=== PATIENT | female | born 1955 | race Caucasian/White ===

== ENCOUNTER → 2017-03-20 13:55 | Outpatient (CLI) | payer BC ==
[2014-04-24 16:55] VITALS: BMI 53.2
[~2017-03-20 13:55] MED LIST: ALEVE220 MG PO; EFFEXOR XR150 MG PO; PLAVIX75 MG PO; SYNTHROID25 MCG PO
[2017-03-20 14:27] LABS: BASOPHILS 0.2 % (0-2); EOSINOPHILS 1.2 % (0-7); HEMATOCRIT 43.3 % (36.0-48.0); IMMATURE GRANULOCYTES 0.3 % (0-5); LYMPHOCYTES 28.7 % (15-50); MCH 31.5 pg (26.0-34.0); MCHC 32.3 g/dL (31.0-37.0); MCV 97.3 fL (80.0-100.0); MEAN PLATELET VOLUME 10.9 fL (7.4-10.4); MONOCYTES 6.3 % (2-11); NEUTROPHILS 63.3 % (40-80); PLATELET COUNT 226 10x3/uL (130-400); RBC 4.45 10x6/uL (4.00-5.40); RDW 14.2 % (11.5-14.5); WBC 11.5 10x3/uL (4.8-10.8)
[2017-03-20 14:58] LABS: ALBUMIN 3.5 g/dL (3.4-5.0); ALKALINE PHOSPHATASE 80 U/L (46-116); ALT (SGPT) 35 U/L (10-68); BILIRUBIN - TOTAL 0.17 mg/dL (0.2-1.3); CALC OSMOLALITY 283 mosm/kg (275-300); CALCIUM 10.6 mg/dL (8.5-10.1); CARBON DIOXIDE 28.6 mmol/L (21.0-32.0); CHLORIDE - SERUM 107 mmol/L (98-107); CREATININE - SERUM 0.7 mg/dL (0.6-1.3); FERRITIN 61 ng/mL (3-244); GLUCOSE 84 mg/dL (74-106); POTASSIUM - SERUM 4.1 mmol/L (3.5-5.1); PROTEIN - SERUM 7.4 g/dL (6.4-8.2); SODIUM 142 mmol/L (136-145); THYROID STIMULATING HORMONE 3.15 uIU/mL (0.36-3.74); UREA NITROGEN 18 mg/dL (7-18); eGFR NON AFRICAN AMERICAN 90 mL/min (90-120)
[2017-03-21 07:27] LABS: VITAMIN D 25 HYDROXY 38.3 ng/mL (30.0-100.0)
[2017-03-21 08:19] LABS: FOLATE (FOLIC ACID) - SERUM >20.0 ng/mL (>3.0)
== END | disposition home or self-care (01) ==
LOC: D.RT 03-19 16:45
PROVIDERS: Surgery
DX: E66.01 Morbid (severe) obesity due to excess calories (principal)

== ENCOUNTER → 2017-09-13 15:42 | Outpatient (CLI) | payer BC ==
[2014-04-24 16:55] VITALS: BMI 53.2
[2017-09-13 16:23] LABS: ALBUMIN 3.4 g/dL (3.4-5.0); ALKALINE PHOSPHATASE 96 U/L (46-116); ALT (SGPT) 26 U/L (10-68); BILIRUBIN - TOTAL 0.24 mg/dL (0.2-1.3); CALC OSMOLALITY 284 mosm/kg (275-300); CALCIUM 9.8 mg/dL (8.5-10.1); CARBON DIOXIDE 30.1 mmol/L (21.0-32.0); CHLORIDE - SERUM 107 mmol/L (98-107); CREATININE - SERUM 0.4 mg/dL (0.6-1.3); GLUCOSE 106 mg/dL (74-106); POTASSIUM - SERUM 3.5 mmol/L (3.5-5.1); PROTEIN - SERUM 6.9 g/dL (6.4-8.2); SODIUM 144 mmol/L (136-145); UREA NITROGEN 6 mg/dL (7-18); eGFR NON AFRICAN AMERICAN > 90 mL/min (90-120)
[2017-09-13 16:33] LABS: % SATURATION 18 % (15-55); IRON 62 ug/dl (35-150); TOTAL IRON BIND CAPACITY 341 ug/dl (260-445); UNSAT IRON BIND CAPACITY 279 ug/dl (150-375)
[2017-09-15 09:13] LABS: FOLATE (FOLIC ACID) - SERUM >20.0 ng/mL (>3.0)
== END | disposition home or self-care (01) ==
LOC: D.LAB 15:42
PROVIDERS: Surgery
DX: E55.9 Vitamin D deficiency, unspecified (principal); E51.9 Thiamine deficiency, unspecified; D51.9 Vitamin B12 deficiency anemia, unspecified; R53.83 Other fatigue; E87.8 Other disorders of electrolyte and fluid balance, not elsewhere classified; D64.9 Anemia, unspecified

== ENCOUNTER → 2017-11-30 13:00 | Outpatient (CLI) | payer BC ==
[2014-04-24 16:55] VITALS: BMI 53.2
== END | disposition home or self-care (01) ==
LOC: D.MAMMO 13:00
DX: Z12.31 Encounter for screening mammogram for malignant neoplasm of breast (principal)

== ENCOUNTER 2019-09-24 09:41 | Inpatient (IN) | payer BC, MEDICARE ==
[~2019-09-24] VITALS: Ht 157.5 cm; Wt 112.5 kg
[2019-10-22 11:09] LABS: BASOPHILS 0.1 % (0-2); EOSINOPHILS 1.8 % (0-7); HEMATOCRIT 42.1 % (36.0-48.0); HEMOGLOBIN 13.2 g/dL (12-16); IMMATURE GRANULOCYTES 0.1 % (0-5); LYMPHOCYTES 34.2 % (15-50); MCH 30.7 pg (26.0-34.0); MCHC 31.4 g/dL (31.0-37.0); MCV 97.9 fL (80.0-100.0); MEAN PLATELET VOLUME 10.8 fL (7.4-10.4); MONOCYTES 6.6 % (2-11); NEUTROPHILS 57.2 % (40-80); PLATELET COUNT 253 10x3/uL (130-400); RDW 13.5 % (11.5-14.5); WBC 7.1 10x3/uL (4.8-10.8)
[2019-10-22 11:12] LABS: APTT 27.3 SECONDS (22.8-39.4); INR 0.91 (0.85-1.17); PROTIME 12.3 SECONDS (11.6-15.0)
[2019-10-22 11:15] LABS: CALC OSMOLALITY 269 mosm/kg (275-300); CARBON DIOXIDE 27.7 mmol/L (21.0-32.0); CHLORIDE - SERUM 104 mmol/L (98-107); CREATININE - SERUM 0.6 mg/dL (0.6-1.3); GLUCOSE 83 mg/dL (74-106); SODIUM 136 mmol/L (136-145); UREA NITROGEN 11 mg/dL (7-18); eGFR NON AFRICAN AMERICAN > 90 mL/min (90-120)
[2019-10-22 11:21] LABS: BILIRUBIN NEGATIVE (NEGATIVE); KETONE NEGATIVE (NEGATIVE); NITRITE NEGATIVE (NEGATIVE); UROBILINOGEN NORMAL mg/dL (< 2)
[2019-10-28] VITALS (11 sets, daily range): BP systolic 94–143; BP diastolic 51–77; BMI 376.1; BMI 45.5
--- NOTE | 2019-10-28 08:06 | NUR ---
THROUGH TRAFFIC KEPT TO A MINIMUM. HIBACLENS AND ALCOHOL USED TO CLEAN BOTH SIDES BEFORE PREPPING. STERILE GOWNED AND GLOVED TO PREP BILATERAL KNEES.
--- NOTE | 2019-10-28 11:20 | NUR ---
ANESTHESIA AT BEDSIDE AT THIS TIME. EPIDURAL PAUSED FOR SBP SUSTAINED IN 80'S. WILL RESUME AT A LATER TIME PRESSURE ALLOWS.
--- NOTE | 2019-10-28 12:05 | NUR ---
RECEIVED TO ROOM 1213 VIA BED FROM PACU. A/O X3. DRESSINGS TO BILATERAL KNEES DRY AND INTACT. IN ROOM. NO C/O PAIN AT THIS TIME. BP IS RUNNING LOW, DR. FROST AWARE OF SAME. WILL MONITOR.
--- NOTE | 2019-10-28 12:46 | MORECARE ---
CASE MANAGEMENT DISCHARGE SUMMARY PATIENT: OSVALDO CASH UNIT: [id number] ADM DATE: 10/28/19 AGE: 64 : 56 SEX: F ROOM/BED: D.1213 AUTHOR: LIBERTAD MONAE PHYSICIAN: REFERRING PHYSICIAN: SAMIRA DAVILA DO DATE OF SERVICE: 10/28/19 Discharge Plan Patient Name: OSVALDO CASH [facility] : 1955 Planned Disposition: Anticipated Discharge Date: Discharge Date: Expected LOS: Initial Reviewer: [email or web address] Initial Review Date: 10/28/2019 Generated: 10/28/19 1:45 pm Patient Name: OSVALDO CASH Page 11158 at 1246 All edits/amendments must be made on the electronic document DICTATION DATE: 10/28/19 1245 PORTAL ADMINISTRATOR: MAJO 10/28/19 1245 RPT#: [id number] DC DATE: STATUS: ADM IN [facility] [address] [place] [address] END OF REPORT
--- NOTE | 2019-10-28 13:52 | NUR ---
BP IS UP SLIGHTLY. SITTING UP IN BED EATING LUNCH. DR. TIPTON HERE AT THIS TIME. WILL CONTINUE TO MONITOR.
--- NOTE | 2019-10-28 14:30 | NUR ---
RESTING QUIETLY IN BED. DENIES NEEDS. AT BEDSIDE.
--- NOTE | 2019-10-28 14:34 | MORECARE ---
CASE MANAGEMENT DISCHARGE SUMMARY PATIENT: OSVALDO CASH UNIT: [id number] ADM DATE: 10/28/19 AGE: 64 : 56 SEX: F ROOM/BED: D.1213 AUTHOR: LIBERTAD MONAE PHYSICIAN: REFERRING PHYSICIAN: SAMIRA DAVILA DO DATE OF SERVICE: 10/28/19 Discharge Plan Patient Name: OSAVLDO CASH [facility] [facility] 1955 Planned Disposition: Anticipated Discharge Date: Discharge Date: Expected LOS: Initial Reviewer: [email or web address] Initial Review Date: 10/28/2019 Generated: 10/28/19 3:33 pm Last DP export: 10/28/19 11:46 a Patient Name: OSVALDO CASH Page 68082 at 1434 All edits/amendments must be made on the electronic document DICTATION DATE: 10/28/19 1434 SPINNER OPEN END: MAJO 10/28/19 1434 RPT#: [id number] DC DATE: STATUS: ADM IN [facility] [address] [place] [address] END OF REPORT
--- NOTE | 2019-10-28 15:18 | NUR ---
ATE ABOUT 25% OF LUNCH. DENIES NEEDS. VSS. AT BEDSIDE.
--- NOTE | 2019-10-28 16:49 | MORECARE ---
CASE MANAGEMENT DISCHARGE SUMMARY PATIENT: RADHA CASH UNIT: [id number] ADM DATE: 10/28/19 AGE: 64 : 57 SEX: F ROOM/BED: D.1213 AUTHOR: DOV,DOC PHYSICIAN: REFERRING PHYSICIAN: SAMIRA DAVILA DO DATE OF SERVICE: 10/28/19 Discharge Plan Patient Name: RADHA CASH Facility: [facility]:[place] : 1955 Planned Disposition: Home with Home Health Anticipated Discharge Date: Discharge Date: Expected LOS: Initial Reviewer: [email or web address] Initial Review Date: 10/28/2019 Generated: 10/28/19 5:48 pm Comments DCP- Discharge Planning Updated by [id number]: Betina Garsia on 10/28/19 3:[address] CM contacted Lesa, with [employer] ([phone]) and faxed information to [phone]. CM met with patient to discuss initial discharge planning. Patient is in agreement to proceed. Patient reports that she lives at home independently with her , Isak ([phone]). Patient is alert/oriented. PCP: Dr. Pak. Pharmacy: [facility], . HHS: [employer], [phone]), [phone]. DME: To be delivered : CPM, Walker, BSC. Patient currently has a raised toilet seat aqnd pedal machine at home. Patient gives permission to speak in front of spouse, Isak ([phone]). 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 CM discussed the availability of HH, Rehab, SNF, OP Therapy, DME services. Patient request [facility] for therapy and feels safe returning to previous environment. Patient denies hospitalization within the past 30 days. Patient denies the use of community resources VETERANS SERVICE OFFICER. Transportation at time of discharge: Isak (spouse). CM will follow and assist PRN with DC plans. Coverage Notice Reviewer: [id number] - Betina Garsia Notice Issued Date-Time: 10/28/2019 16:37 Notice Type: Patient Choice Letter Notice Delivered To: Patient Relationship to Patient: Self Perinatal Instructor Name: Radha cash Delivery Method: HAND - Hand Delivered Magdalena Days: Prior Verbal Notification: Recipient Understood Notice: Yes Recipient Signature: Med Rec Note Co-signed by Attending: Coverage Notice Comment: Robinson AYERS Last DP export: 10/28/19 1:34 p Patient Name: RADHA CASH Page 26321 at 1649 All edits/amendments must be made on the electronic document DICTATION DATE: 10/28/191647 ARMATURE REPAIRER: MAJO 10/28/191647 RPT#: [id number] DC DATE: STATUS: ADM IN [facility] [address] [place] [address] END OF REPORT
--- NOTE | 2019-10-28 16:57 | MORECARE ---
CASE MANAGEMENT DISCHARGE SUMMARY PATIENT: RADHA CASH UNIT: [id number] ADM DATE: 10/28/19 AGE: 64 : 57 SEX: F ROOM/BED: D.1213 AUTHOR: DOV,DOC PHYSICIAN: REFERRING PHYSICIAN: SAMIRA DAVILA DO DATE OF SERVICE: 10/28/19 Discharge Plan Patient Name: RADHA CASH Facility: [facility]:[place] : 1955 Planned Disposition: Home with Home Health Anticipated Discharge Date: Discharge Date: Expected LOS: Initial Reviewer: [email or web address] Initial Review Date: 10/28/2019 Generated: 10/28/19 5:57 pm Comments DCP- Discharge Planning Updated by [email or web address]: Betina Garsia on 10/28/19 3:[address] CM contacted Lesa, with [employer] ([phone]) and faxed information to [phone]. CM met with patient to discuss initial discharge planning. Patient is in agreement to proceed. Patient reports that she lives at home independently with her , Isak ([phone]). Patient is alert/oriented. PCP: Dr. Pak. Pharmacy: [facility], . HHS: [employer], [phone]), [phone]. DME: To be delivered : CPM, Walker, BSC. Patient currently has a raised toilet seat aqnd pedal machine at home. Patient gives permission to speak in front of spouse, Isak ([phone]). 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 CM discussed the availability of HH, Rehab, SNF, OP Therapy, DME services. Patient request [facility] for therapy and feels safe returning to previous environment. Patient denies hospitalization within the past 30 days. 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 Transportation at time of discharge: Isak (spouse). CM will follow and assist PRN with DC plans. External Providers External Provider: [facility] Next Contact Date: Service Request Date: Service Type: Resolution: Reviewer: Comments: Coverage Notice Reviewer: [id number] - Betina Garsia Notice Issued Date-Time: 10/28/2019 16:37 Notice Type: Patient Choice Letter Notice Delivered To: Patient Relationship to Patient: Self Tree Trimmer Name: Radha cash Delivery Method: HAND - Hand Delivered Magdalena Days: Prior Verbal Notification: Recipient Understood Notice: Yes Recipient Signature: Med Rec Note Co-signed by Attending: Coverage Notice Comment: Abdirizak AYERS Last DP export: 10/28/19 1:34 p Patient Name: RADHA CASH Page 45037 at 1657 All edits/amendments must be made on the electronic document DICTATION DATE: 10/28/191656 PHARMACY SPECIALIST: MAJO 10/28/191656 RPT#: [id number] DC DATE: STATUS: ADM IN [facility] [address] [place] [address] END OF REPORT
--- NOTE | 2019-10-28 17:04 | MORECARE ---
CASE MANAGEMENT DISCHARGE SUMMARY PATIENT: RADHA CASH UNIT: [id number] ADM DATE: 10/28/19 AGE: 64 : 57 SEX: F ROOM/BED: D.1213 AUTHOR: DOV,DOC PHYSICIAN: REFERRING PHYSICIAN: SAMIRA DAVILA DO DATE OF SERVICE: 10/28/19 Discharge Plan Patient Name: RADHA CASH Facility: [facility]:[place] : 1955 Planned Disposition: Home with Home Health Anticipated Discharge Date: Discharge Date: Expected LOS: Initial Reviewer: [email or web address] Initial Review Date: 10/28/2019 Generated: 10/28/19 6:04 pm Comments DCP- Discharge Planning Updated by [id number]: Betina Garsia on 10/28/19 3:[address] CM contacted Lesa, with [employer] ([phone]) and faxed information to [phone]. CM met with patient to discuss initial discharge planning. Patient is in agreement to proceed. Patient reports that she lives at home independently with her , Isak ([phone]). Patient is alert/oriented. PCP: Dr. Pak. Pharmacy: [facility], . HHS: [employer] [facility], [phone]), [phone]. DME: To be delivered : CPM, Walker, BSC. Patient currently has a raised toilet seat aqnd pedal machine at home. Patient gives permission to speak in front of spouse, Isak ([phone]). 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 CM discussed the availability of HH, Rehab, SNF, OP Therapy, DME services. Patient request [facility] for therapy and feels safe returning to previous environment. Patient denies hospitalization within the past 30 days. Patient denies the use of community resources TRIPLE DRUM OPERATOR. Transportation at time of discharge: Isak (spouse). CM will follow and assist PRN with DC plans. Coverage Notice Reviewer: [id number] - Betina Garsia Notice Issued Date-Time: 10/28/2019 16:37 Notice Type: Patient Choice Letter Notice Delivered To: Patient Relationship to Patient: Self Last Trimmer Name: Radha cash Delivery Method: HAND - Hand Delivered Magdalena Days: Prior Verbal Notification: Recipient Understood Notice: Yes Recipient Signature: Med Rec Note Co-signed by Attending: Coverage Notice Comment: Robinson AYERS Last DP export: 10/28/19 3:57 p Patient Name: RADHA CASH Page 15453 at 1704 All edits/amendments must be made on the electronic document DICTATION DATE: 10/28/191703 PRE SCHOOL TEACHER: MAJO 10/28/191703 RPT#: [id number] DC DATE: STATUS: ADM IN [facility] [address] [place] [address] END OF REPORT
--- NOTE | 2019-10-28 17:41 | MORECARE ---
CASE MANAGEMENT DISCHARGE SUMMARY PATIENT: RADHA CASH UNIT: [id number] ADM DATE: 10/28/19 AGE: 64 : 57 SEX: F ROOM/BED: D.1213 AUTHOR: DOV,DOC PHYSICIAN: REFERRING PHYSICIAN: SAMIRA DAVILA DO DATE OF SERVICE: 10/28/19 Discharge Plan Patient Name: RADHA CASH Facility: [facility]:[place] : 1955 Planned Disposition: Home with Home Health Anticipated Discharge Date: Discharge Date: Expected LOS: Initial Reviewer: [email or web address] Initial Review Date: 10/28/2019 Generated: 10/28/19 6:40 pm Comments DCP- Discharge Planning Updated by [email or web address]: Betina Garsia on 10/28/19 3:[address] CM contacted Lesa, with [employer] ([phone]) and faxed information to [phone]. CM met with patient to discuss initial discharge planning. Patient is in agreement to proceed. Patient reports that she lives at home independently with her , Isak ([phone]). Patient is alert/oriented. PCP: Dr. Pak. [facility] . HHS: [employer], [phone]), [phone]. DME: To be delivered : CPM, Walker, BSC. Patient currently has a raised toilet seat aqnd pedal machine at home. Patient gives permission to speak in front of spouse, Isak ([phone]). Patient is Independent with all ADL's, medication management PST MANAGER. CM discussed the availability of HH, Rehab, SNF, OP Therapy, DME services. Patient request [employer] [facility] for therapy and feels safe returning to previous environment. Patient denies hospitalization within the past 30 days. Patient denies the use of community resources PST MANAGER. Transportation at time of discharge: Isak (spouse). CM will follow and assist PRN with DC plans. Coverage Notice Reviewer: [email or web address] - Betina Garsia Notice Issued Date-Time: 10/28/2019 16:37 Notice Type: Patient Choice Letter Notice Delivered To: Patient Relationship to Patient: Self Process Operator Name: Radha cash Delivery Method: HAND - Hand Delivered Magdalena Days: Prior Verbal Notification: Recipient Understood Notice: Yes Recipient Signature: Med Rec Note Co-signed by Attending: Coverage Notice Comment: Robinson AYERS Last DP export: 10/28/19 4:04 p Patient Name: RADHA CASH Page 44889 at 1741 All edits/amendments must be made on the electronic document DICTATION DATE: 10/28/191739 MOLECULAR MODELER: MAJO 10/28/191739 RPT#: [id number] DC DATE: STATUS: ADM IN [facility] [address] [place] [address] END OF REPORT
--- NOTE | 2019-10-28 17:45 | NUR ---
ATE ABOUT HALF OF SUPPER TRAY. NO C/O AT THIS TIME. VSS. BP WNL. PLACED ON CPM MACHINE ON LEFT LEG. NO CHANGES NOTED.
--- NOTE | 2019-10-28 19:30 | NUR ---
INTRODUCED SELF TO PT. ASSISTED DAY NURSE TO REMOVE PT FROM FROM LEFT LEG AND PLACE ON THE RIGHT. LEG. PT SITUATED IN BED.
--- NOTE | 2019-10-28 20:30 | NUR ---
PT TAKEN OFF CPM. SHE COULD NOT TOLERATE THE ENTIRE 2 HOURS BUT ALMOST. HER KNEES ARE WRAPPED IN BINDU WRAPS. PT HAS A WHITESIDE CATHETER DRAINING YELLOW URING. O2 AT 2 L VIA NC. PT HAS A CONTINOUS EPIDURAL. SHE IS TO HAVE NO ANTICOAGULATION MEDICATIONS DURING THE TIME THE EPIDURAL IS IN PLACE. IV IN THE L HAND. SCD'S IN PLACE. VS OK.
[2019-10-29] VITALS: BP 125/65
--- NOTE | 2019-10-29 | NUR ---
PT RESTING WELL NO C/O.
--- NOTE | 2019-10-29 02:45 | NUR ---
IN PT ROOM TO HANG ANTIBIOTIC. PT WAKED UP FOR THIS. SHE STATES SHE HAS NO PAIN AND HAS NO NEEDS
[2019-10-29 04:00] VITALS: BP 145/76
[2019-10-29 07:24] LABS: HEMATOCRIT 34.4 % (36.0-48.0); HEMOGLOBIN 10.9 g/dL (12-16); MCH 31.1 pg (26.0-34.0); MCHC 31.7 g/dL (31.0-37.0); MCV 98.3 fL (80.0-100.0); MEAN PLATELET VOLUME 10.8 fL (7.4-10.4); RBC 3.5 10x6/uL (4.00-5.40); RDW 13.6 % (11.5-14.5); WBC 9.5 10x3/uL (4.8-10.8)
--- NOTE | 2019-10-29 08:58 | OP ---
PATIENT NAME: OSVALDO CASH MEDICAL RECORD: [id number] :57 LOCATION:[facility] D.1213 ADMISSION DATE:10/28/19 SURGEON: LEWIS DAVILA DO DATE OF OPERATION: 10/28/2019 PROCEDURE PERFORMED: Bilateral total knee arthroplasty. PREOPERATIVE DIAGNOSIS: Bilateral knee osteoarthritis. POSTOPERATIVE DIAGNOSIS: Bilateral knee osteoarthritis. INDICATIONS: Ms. Cash is a 64-year-old female who has had bilateral knee pain and osteoarthritis for quite some time, years even. She has been getting injections every 3 months. She got to the point where they did not work and did not give her relief. She tried all manner of nonoperative treatment and decided she wanted to do something surgically. She is aware of the risks including infection, bleeding, damage to nerves or vessels, need for further surgery, continued pain, arthrofibrosis, loss of motion, failure of implants, blood clots, and even and she signed the consent. SURGEON: Lewis Davila DO DESCRIPTION OF PROCEDURE: The patient was given an epidural in the preoperative area by anesthesia. She was taken to the operative suite, laid in the supine position, given 1.25 g of vancomycin. The bilateral lower extremities were then prepped and draped in a sterile fashion. A time-out was performed and everyone was in agreement with the correct site, side, patient, and procedure. We then covered the right one as the left one was done first. I then marked out an incision on the left one and covered it in Ioban. I then made careful dissection down with a 10 blade to the capsule, did a medial parapatellar approach through the capsule of the knee with a fresh 10 blade scalpel. I then everted the patella, removed part of the fat pad, and milled down the patella. I then removed the ACL, brought the knee up to flexion, and entered the femoral canal. I then brought in the intramedullary guide and cut the distal femur. I did this. I then used the extramedullary guide on the tibia and cut it, proximal tibial cut, was then removed and menisci removed with the knee in extension. I then used the 10 extension block and fit well. I then flexed the knee up and sized the femur to be a 57.5. I then used a four-in-one cutting block with an Rei wing to ensure there was no notching and I made the 4 cuts on the femur. I then put the trial on the femur and then put in the tibial tray and poly, ranged it and marked the rotation. I then drilled the holes for the patella through the guide and the lugholes on the femur. I then exposed the tibia, sized it to be a 67 and reamed and punched and put extra holes in the tibia for the cement. The cement was then mixed. Tibia was irrigated and cement was put on the implant in the tibia and impacted in place. Excess cement was removed and then femur was impacted on. A 12 poly was put in between and brought to extension. I then cleaned out the patella with irrigation and a curet. I then used the cement, put it on the patella and on the implant and squeezed it in place and held it. Excess cement was removed from the tibia. I then used 10% povidone-iodine with 500 mL normal saline solution, let it sit in the knee for 3 minutes, then irrigated out with normal saline. By then, the cement was dried. I then trialed a 14. A 14 poly fit very well. I then put in a 14 E poly anterior stabilized and locked it into place. I then irrigated the knee one more time and put in Candace and vancomycin and tobramycin powder and closed the capsule by myself; Tk Brito, certified salesperson surgical appliances; and May OPERATIVE REPORT [id number] OSVALDO CASH, certified salesperson surgical appliances student, in a zrcymc-qv-yicoo with #1 pop-off Vicryl. Tk and Nyla then closed the skin with 2-0 Vicryl in inverted fashion. A ZipLine was then placed on the knee. She was then dressed with Adaptic, 4 x 4's, ABD, and cast padding. I then covered the left knee and then covered the right knee and reprepped it. I then marked out the incision, covered it in Ioban, and made an incision down through the skin down to the capsule and used a fresh 10 blade to do a medial parapatellar approach. I everted the patella. I removed part of the fat pad and milled down the patella. I then entered the femoral canal to remove the ACL and used an intramedullary guide to cut the distal femur. I then cut the proximal tibia through an extramedullary guide and removed the bone and the menisci. I then brought the knee to an extension and used a 10 extension block and it fit well. I then flexed up the femur and sized it to be 57.5. I then put the four-in-one cutting block on. I used an Rei wing to ensure there was no notching. I then cut the distal femur with chamfer cuts. I then put on the femoral trial, put in the tibia with a poly and ranged it and marked the rotation. I then drilled for the patella and lugholes on the femur. I removed the femoral trial and exposed the tibia and marked. I sized it to be 67 and reamed and punched it and put extra holes in the tibia. Then, the cement was mixed. Tibia was irrigated. Cement was put in the tibia and on the implant and impacted into place. Excess cement was removed. I then impacted the femur on, put a 12 poly in between and brought the knee into extension. I cleaned out the patella with the curet and irrigation, then put the cement in the patella and on the implant and squeezed into place and held into place while the cement dried. Excess cement was removed from that and the tibia. I put in the 10% povidone-iodine solution with 500 mL of normal saline and let it sit while the cement dried for 3 minutes. I then irrigated that out and the cement had dried. I then sized again to be a 14 anterior stabilized poly. E poly was put in and locked into place. We then ranged the knee and ranged her well. We had good stability in mid flexion, flexion, and extension. I then put in the Candace and vancomycin and tobramycin powder and I used #1 Vicryl pop-offs and closed the capsule in a qepevl-fv-cvjzc fashion. Myself; Nyla Moody, certified surgical first breaker feeder student; and Tk Brito, certified surgical first breaker feeder all closed the capsule. Then, Tk and Nyla closed the skin with 2-0 Vicryl in inverted interrupted fashion. ZipLine placed on the knee. Adaptic, 4 x 4's, ABD, Webril, Germán wrap were then placed on the knee. An Germán wrap was then placed on the left one. She was awakened and taken to recovery in stable condition. BLOOD LOSS: Approximately 400 mL. COMPLICATIONS: None. NTS:[id number] Voice Confirmation ID: [id number] DOCUMENT ID: [id number] LEWIS DAVILA DO at 0858 CC: [id number] DICTATION DATE: 10/28/191102 STUCCO APPLICATOR: 10/28/19 2146 ADM IN [facility] [address] [place] [id number]
[2019-10-29 09:27] VITALS: BP 153/73
--- NOTE | 2019-10-29 09:55 | NUR ---
PT ALERT X 4. BREATH SOUNDS CLEAR BILAT. BINDU TO BILAT KNEES. EPIDURAL REMOVED A SHORT TIME AGO, PT HAS NOT REGAINED CONTROL OF LEGS. WHITESIDE IN PLACE. URINE YELLOW AND CLEAR. PT REPORTING PAIN OF 1/10, MEDICATED PER ORDERS, WILL CONTINUE TO MONITOR. BED LOW, CALL LIGHT IN REACH. NO OTHER NEEDS AT THIS TIME.
[2019-10-29 10:26] VITALS: Ht 157.5 cm; Wt 112.5 kg
[2019-10-29 13:49] LABS: CALC OSMOLALITY 273 mosm/kg (275-300); CALCIUM 8.7 mg/dL (8.5-10.1); CARBON DIOXIDE 26.5 mmol/L (21.0-32.0); CHLORIDE - SERUM 106 mmol/L (98-107); CREATININE - SERUM 0.7 mg/dL (0.6-1.3); GLUCOSE 104 mg/dL (74-106); POTASSIUM - SERUM 4.2 mmol/L (3.5-5.1); SODIUM 138 mmol/L (136-145); UREA NITROGEN 8 mg/dL (7-18); eGFR NON AFRICAN AMERICAN 90 mL/min (90-120)
--- NOTE | 2019-10-29 17:08 | MORECARE ---
CASE MANAGEMENT DISCHARGE SUMMARY PATIENT: RADHA CASH UNIT: [id number] ADM DATE: 10/28/19 AGE: 64 : 57 SEX: F ROOM/BED: D.1213 AUTHOR: DOV,DOC PHYSICIAN: REFERRING PHYSICIAN: SAMIRA DAVILA DO DATE OF SERVICE: 10/29/19 Discharge Plan Patient Name: RADHA CASH Facility: [facility]:[place] : 1955 Planned Disposition: Home with Home Health Anticipated Discharge Date: Discharge Date: Expected LOS: Initial Reviewer: [email or web address] Initial Review Date: 10/28/2019 Generated: 10/29/19 6:07 pm Comments DCP- Discharge Planning Updated by [email or web address]: Betina Garsia on 10/28/19 3:[address] CM contacted Lesa, with [employer] ([phone]) and faxed information to [phone]. CM met with patient to discuss initial discharge planning. Patient is in agreement to proceed. Patient reports that she lives at home independently with her , Isak ([phone]). Patient is alert/oriented. PCP: Dr. Pak. [facility] . HHS: [employer], [phone]. DME: To be delivered : CPM, Walker, BSC. Patient currently has a raised toilet seat aqnd pedal machine at home. Patient gives permission to speak in front of spouse, Isak ([phone]). 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 CM discussed the availability of HH, Rehab, SNF, OP Therapy, DME services. Patient request [facility] for therapy and feels safe returning to previous environment. Patient denies hospitalization within the past 30 days. Patient denies the use of community resources DIRECTOR OF STUDENT FINANCIAL SERVICES. Transportation at time of discharge: Isak (spouse). CM will follow and assist PRN with DC plans. Coverage Notice Reviewer: [id number] - Betina Garsia Notice Issued Date-Time: 10/28/2019 16:37 Notice Type: Patient Choice Letter Notice Delivered To: Patient Relationship to Patient: Self Nougat Cutter Machine Name: Radha cash Delivery Method: HAND - Hand Delivered Magdalena Days: Prior Verbal Notification: Recipient Understood Notice: Yes Recipient Signature: Med Rec Note Co-signed by Attending: Coverage Notice Comment: Robinson AYERS Last DP export: 10/28/19 4:41 p Patient Name: RADHA CASH Page 22773 at 1708 All edits/amendments must be made on the electronic document DICTATION DATE: 10/29/191707 AERIAL GUNNER: MAJO 10/29/191707 RPT#: [id number] DC DATE: STATUS: ADM IN [facility] [address] [place] [address] END OF REPORT
--- NOTE | 2019-10-29 20:00 | NUR ---
ALERT RESTING IN BED, REPORT FEELING NOW RETURNING TO LEGS AFTER EPIDURAL, DENIES PAIN OR NEEDS AT THIS TIME, WHITESIDE CATH TO GRAVITY DRAINAGE, INSTRUCTED WILL REMOVE IN AM AGREES TO THIS, SEE SHIFT ASSESSMENT, CALL [facility] BERG
[2019-10-29 20:40] VITALS: BP 142/62
[2019-10-30 04:37] VITALS: BP 159/85
--- NOTE | 2019-10-30 07:00 | NUR ---
PT RESTING QUIETLY IN BED WITH CPM TO RIGHT LOWER EXTREMITY. PT ANA WELL. DRESSING C/D/I. BILAT LOWER EXTREMITIES WARM TO TOUCH. REPORTS PAIN 2/10 AT THIS TIME. SALINE LOC TO LEFT HAND. SITE WITHOUT REDNESS OR EDEMA. DENIES FURTHER NEEDS AT THIS TIME. CL WITHIN REACH. ENCOURAGED TO CALL WITH NEEDS. CONTINUE POC
[2019-10-30 08:22] LABS: BASOPHILS 0.1 % (0-2); EOSINOPHILS 0.5 % (0-7); HEMATOCRIT 34.7 % (36.0-48.0); IMMATURE GRANULOCYTES 0.2 % (0-5); LYMPHOCYTES 13.3 % (15-50); MCH 30.5 pg (26.0-34.0); MCHC 31.7 g/dL (31.0-37.0); MEAN PLATELET VOLUME 10.4 fL (7.4-10.4); MONOCYTES 8.6 % (2-11); NEUTROPHILS 77.3 % (40-80); PLATELET COUNT 184 10x3/uL (130-400); RBC 3.61 10x6/uL (4.00-5.40); RDW 13.3 % (11.5-14.5); WBC 9.5 10x3/uL (4.8-10.8)
[2019-10-30 08:25] LABS: MCV 96.1 fL (80.0-100.0)
[2019-10-30 08:38] VITALS: BP 159/75
[2019-10-30 08:42] LABS: CALC OSMOLALITY 269 mosm/kg (275-300); CALCIUM 9.6 mg/dL (8.5-10.1); CARBON DIOXIDE 24.3 mmol/L (21.0-32.0); CHLORIDE - SERUM 105 mmol/L (98-107); CREATININE - SERUM 0.6 mg/dL (0.6-1.3); GLUCOSE 91 mg/dL (74-106); MAGNESIUM - SERUM 2.1 mg/dL (1.8-2.4); POTASSIUM - SERUM 3.7 mmol/L (3.5-5.1); SODIUM 136 mmol/L (136-145); UREA NITROGEN 7 mg/dL (7-18); eGFR NON AFRICAN AMERICAN > 90 mL/min (90-120)
[2019-10-30 11:39] VITALS: BP 150/65
--- NOTE | 2019-10-30 12:02 | NUR ---
OT NOTE: PT DOING BETTER TODAY. MAX ASSIST X 2 TO GET TO EOB. WAS ABLE TO USE TRAPEZE BAR TO ASSIST. SIT TO STAND WITH MAX ASSIST X 2.. MADE SEVERAL ATTEMPTS BUT ON SECOND ATTEMPT, PT WAS ABLE TO GET TO STANDING WITH USE OF RW AND MAX ASSIST X 2 AND TOLERATED STANDING FOR APPROX 30 SECONDS.. UNABLE TO TAKE STEPS AT THIS TIME, HOWEVER, WILL ATTEMPT IN PM. PT PERFORMING GROOMING AND UE ADLS WITHOUT DIFFICULTY. CONTINUES TO HAVE DIFFICULTY WITH BED MOB. WILL REQUIRE IP REHAB IN ORDER TO RETURN TO OF JOSE FALL, OTR/L [phone]
[2019-10-30 16:49] VITALS: BP 158/70
[2019-10-30 20:00] VITALS: BP 152/79
[2019-10-31 04:00] VITALS: BP 140/75
[2019-10-31 05:34] LABS: BASOPHILS 0.1 % (0-2); EOSINOPHILS 1.8 % (0-7); HEMATOCRIT 33.7 % (36.0-48.0); HEMOGLOBIN 10.7 g/dL (12-16); IMMATURE GRANULOCYTES 0.2 % (0-5); LYMPHOCYTES 14.7 % (15-50); MCH 30.6 pg (26.0-34.0); MCHC 31.8 g/dL (31.0-37.0); MCV 96.3 fL (80.0-100.0); MEAN PLATELET VOLUME 10.6 fL (7.4-10.4); MONOCYTES 8.1 % (2-11); NEUTROPHILS 75.1 % (40-80); PLATELET COUNT 214 10x3/uL (130-400); RDW 13.4 % (11.5-14.5); WBC 8.3 10x3/uL (4.8-10.8)
[2019-10-31 05:46] LABS: CALC OSMOLALITY 265 mosm/kg (275-300); CALCIUM 9.9 mg/dL (8.5-10.1); CARBON DIOXIDE 25.9 mmol/L (21.0-32.0); CHLORIDE - SERUM 104 mmol/L (98-107); CREATININE - SERUM 0.6 mg/dL (0.6-1.3); GLUCOSE 98 mg/dL (74-106); MAGNESIUM - SERUM 2.2 mg/dL (1.8-2.4); POTASSIUM - SERUM 3.5 mmol/L (3.5-5.1); SODIUM 134 mmol/L (136-145); UREA NITROGEN 8 mg/dL (7-18); eGFR NON AFRICAN AMERICAN > 90 mL/min (90-120)
[2019-10-31 08:40] VITALS: BP 144/76
--- NOTE | 2019-10-31 11:27 | NUR ---
Nutrition Follow-up: Diet: Regular PO intake: has not been recorded in EMR. She states that her appetite is getting better. States that today was the first day that she felt like eating. Last BM: none recorded since admit. Wt: 248# (10/29/19) Meds and labs reviewed. Recommend continue current diet. RD following.
[2019-10-31 11:47] VITALS: BP 146/72
--- NOTE | 2019-10-31 12:25 | NUR ---
OT NOTE: PT DOING MUCH BETTER TODAY. EXHIBITED INCREASED MOVEMENT IN B LES. PT WAS ABLE TO MOVE LES TO EOB WITH MIN ASSIST TODAY; MOD ASSIST AND EXTENEDED TIME REQUIRED FOR REMAINDER OF SUPINE TO SIT. GOOD SITTING BALANCE ON EOB. FREQ REST BREAKS REQUIRED THROUGHOUT TMT SESSION, BUT PT IS VERY MOTIVATED TO IMPROVE. PT REQUIRED MAX ASSIST X 2 FOR SIT TO STAND, HOWEVER, ONCE SHE WAS UP SHE WAS ABLE TO TAKE SEVERAL SIDE STEPS TO R AND L WITH WALKER AND MIN ASSIST FOR BALANCE. (MOD ASSIST REQUIRED FOR WALKER MGMT.)..PTS STANDING TOLERANCE ALSO MUCH BETTER. BACK TO BED WITH MAX ASSIST FOR LE MGMT. PT WAS ABLE TO USE TRAPEZE BAR AND SCOOT LEGS TO MIDLINE WITH VERY MINIMAL ASSIST. EDUCATED ON UE/LE EXS TO PERFORM WHILE IN BED TO ASSIST WITH STRENGTH/ENDURANCE. JOSE FALL, OTR/L [phone]
--- NOTE | 2019-10-31 12:50 | NUR ---
Recieved fax from [facility] with approval for this patient. She is approved for 6 days with DOA 10/31/19. Clinical update due on 11/06/19. Auth# [id number]. Called CM Betina Garsia with this infor. Also visited with the patient this morning, she is agreeable to participate in the required therapy and anxious to begin. She will be accepted today. Apoorva Abarca RN Clinical Liaison,Rehab
--- NOTE | 2019-10-31 12:53 | MORECARE ---
CASE MANAGEMENT DISCHARGE SUMMARY PATIENT: RADHA CASH UNIT: [id number] ADM DATE: 10/28/19 AGE: 64 : 57 SEX: F ROOM/BED: D.1213 AUTHOR: LIBERTAD MONAE PHYSICIAN: REFERRING PHYSICIAN: SAMIRA DAVILA DO DATE OF SERVICE: 10/31/19 Discharge Plan Patient Name: RADHA CASH Facility: [facility]:[place] : 1955 Planned Disposition: Home with Home Health Anticipated Discharge Date: Discharge Date: Expected LOS: Initial Reviewer: [email or web address] Initial Review Date: 10/28/2019 Generated: 10/31/19 1:52 pm Comments DCP- Discharge Planning Updated by [id number]: Betina Garsia on 10/31/19 11:[address] Per Apoorva, with [facility], patient has been authorized for inpatient rehab, to be admitted today. Patient has been made aware. DCP- Discharge Planning Updated by [id number]: Betina Garsia on 10/29/19 4:[address] CM revisited patient today and she request [facility] for therapy. Notified Apoorva in Rehab of same. DCP- Discharge Planning Updated by [email or web address]: Betina Garsia on 10/28/19 3:[address] CM contacted Lesa, with [facility] ([phone]) and faxed information to [phone]. CM met with patient to discuss initial discharge planning. Patient is in agreement to proceed. Patient reports that she lives at home independently with her , Isak ([phone]). Patient is alert/oriented. PCP: Dr. Pak. Pharmacy: [facility], [place]. HHS: [facility], [phone]), [phone]. DME: To be delivered : CPM, Walker, BSC. Patient currently has a raised toilet seat aqnd pedal machine at home. Patient gives permission to speak in front of spouse, Isak ([phone]). Patient is Independent with all ADL's, medication management CONSULTING IT ARCHITECT. CM discussed the availability of HH, Rehab, SNF, OP Therapy, DME services. Patient request [facility] for therapy and feels safe returning to previous environment. Patient denies hospitalization within the past 30 days. Patient denies the use of community resources CONSULTING IT ARCHITECT. Transportation at time of discharge: Isak (spouse). CM will follow and assist PRN with DC plans. Coverage Notice Reviewer: [id number] Stephenie Garsia Notice Issued Date-Time: 10/28/2019 16:37 Notice Type: Patient Choice Letter Notice Delivered To: Patient Relationship to Patient: Self Manager Intelligence Name: Radha cash Delivery Method: HAND - Hand Delivered Magdalena Days: Prior Verbal Notification: Recipient Understood Notice: Yes Recipient Signature: Med Rec Note Co-signed by Attending: Coverage Notice Comment: [facility] Reviewer: [id number] Stephenie Garsia Notice Issued Date-Time: 10/29/2019 17:08 Notice Type: Patient Choice Letter Notice Delivered To: Patient Relationship to Patient: Self Manager Intelligence Name: Radha Cash Delivery Method: HAND - Hand Delivered Magdalena Days: Prior Verbal Notification: Recipient Understood Notice: Yes Recipient Signature: Yes Med Rec Note Co-signed by Attending: Coverage Notice Comment: [facility] Last DP export: 10/29/19 4:08 p Patient Name: RADHA CASH Page [phone] at 1253 All edits/amendments must be made on the electronic document DICTATION DATE: 10/31/19 125 BATTERY CONTAINER TESTER: MAJO 10/31/19 125 RPT#: [id number] DC DATE: STATUS: ADM IN [facility] [address] [place] [address] END OF REPORT
--- NOTE | 2019-10-31 13:49 | MORECARE ---
CASE MANAGEMENT DISCHARGE SUMMARY PATIENT: RADHA CASH UNIT: [id number] ADM DATE: 10/28/19 AGE: 64 : 57 SEX: F ROOM/BED: D.1213 AUTHOR: DOV,LIBERTAD PHYSICIAN: REFERRING PHYSICIAN: SAMIRA DAVILA DO DATE OF SERVICE: 10/31/19 Discharge Plan Patient Name: RADHA CASH Facility: [facility]:[place] : 1955 Planned Disposition: Home with Home Health Anticipated Discharge Date: 10/31/19 Discharge Date: Expected LOS: 3 Initial Reviewer: [id number] Initial Review Date: 10/28/2019 Generated: 10/31/19 2:48 pm DCP- Discharge Planning Updated by [id number]: Betina Garsia on 10/31/19 11:[address] Per Apoorva, with [facility], patient has been authorized for inpatient rehab, to be admitted today. Patient has been made aware. DCP- Discharge Planning Updated by [id number]: Betina Garsia on 10/29/19 4:[address] CM revisited patient today and she request [facility] for therapy. Notified Apoorva in Rehab of same. DCP- Discharge Planning Updated by [id number]: Betina Garsia on 10/28/19 3:[address] CM contacted Lesa, with [facility] ([phone]) and faxed information to [phone]. CM met with patient to discuss initial discharge planning. Patient is in agreement to proceed. Patient reports that she lives at home independently with her , Isak ([phone]). Patient is alert/oriented. PCP: Dr. Pak. Pharmacy: [facility] [place]. H[facility]: [facility], [phone]), [phone]. DME: To be delivered : CPM, Walker, BSC. Patient currently has a raised toilet seat aqnd pedal machine at home. Patient gives permission to speak in front of spouse, Isak ([phone]). Patient is Independent with all ADL's, medication management KETTLEMAN. CM discussed the availability of HH, Rehab, SNF, OP Therapy, DME services. Patient request [facility] for therapy and feels safe returning to previous environment. Patient denies hospitalization within the past 30 days. Patient denies the use of community resources KETTLEMAN. Transportation at time of discharge: Isak (spouse). CM will follow and assist PRN with DC plans. Coverage Notice Reviewer: [id number] Stephenie Garsia Notice Issued Date-Time: 10/28/2019 16:37 Notice Type: Patient Choice Letter Notice Delivered To: Patient Relationship to Patient: Self Practice Office Associate Name: Radha cash Delivery Method: HAND - Hand Delivered Magdalena Days: Prior Verbal Notification: Recipient Understood Notice: Yes Recipient Signature: Med Rec Note Co-signed by Attending: Coverage Notice Comment: [facility] Reviewer: [id number] Stephenie Garsia Notice Issued Date-Time: 10/29/2019 17:08 Notice Type: Patient Choice Letter Notice Delivered To: Patient Relationship to Patient: Self Practice Office Associate Name: Radha Cash Delivery Method: HAND - Hand Delivered Magdalena Days: Prior Verbal Notification: Recipient Understood Notice: Yes Recipient Signature: Yes Med Rec Note Co-signed by Attending: Coverage Notice Comment: [facility] Last DP export: 10/31/19 11:53 a Patient Name: RADHA CASH Page [phone] at 1349 All edits/amendments must be made on the electronic document DICTATION DATE: 10/31/19 1349 CLINICIAN ONCOLOGY: MAJO 10/31/19 1349 RPT#: [id number] DC DATE: STATUS: ADM IN [facility] [address] [place] [address] END OF REPORT
[2019-10-31] MEDS ORDERED: ELIQUIS2.5 MG PO (14:27)
[2019-10-31] MEDS ORDERED: VISTARIL50 MG PO (14:28)
[2019-10-31] MEDS ORDERED: KEFLEX500 MG PO (14:28)
[2019-10-31] MEDS ORDERED: oxyCODONE IR PO (14:28)
[2019-10-31 16:01] VITALS: BP 124/65
--- NOTE | 2019-11-03 08:48 | MORECARE ---
CASE MANAGEMENT DISCHARGE SUMMARY PATIENT: RADHA CASH UNIT: [id number] ADM DATE: 10/28/19 AGE: 64 : 57 SEX: F ROOM/BED: D.1213 AUTHOR: DOV,DOC PHYSICIAN: REFERRING PHYSICIAN: SAMIRA DAVILA DO DATE OF SERVICE: 11/03/19 Discharge Plan Patient Name: RADHA CASH Facility: [facility]:[place] : 1955 Planned Disposition: Home with Home Health Anticipated Discharge Date: 10/31/19 Discharge Date: 10/31/2019 Expected LOS: 3 Initial Reviewer: [email or web address] Initial Review Date: 10/28/2019 Generated: 11/03/19 9:47 am DCP- Discharge Planning Updated by [id number]: Betina Garsia on 10/31/19 11:[address] Per Apoorva, with [facility], patient has been authorized for inpatient rehab, to be admitted today. Patient has been made aware. DCP- Discharge Planning Updated by [email or web address]: Betina Garsia on 10/29/19 4:[address] CM revisited patient today and she request [facility] for therapy. Notified Apoorva in Rehab of same. DCP- Discharge Planning Updated by [email or web address]: Betina Garsia on 10/28/19 3:[address] CM contacted Lesa, with [facility] ([phone]) and faxed information to [phone]. CM met with patient to discuss initial discharge planning. Patient is in agreement to proceed. Patient reports that she lives at home independently with her , Isak ([phone]). Patient is alert/oriented. PCP: Dr. Pak. Pharmacy: [facility], . HHS: [facility], [phone]), [phone]. DME: To be delivered : CPM, Walker, BSC. Patient currently has a raised toilet seat aqnd pedal machine at home. Patient gives permission to speak in front of spouse, Isak ([phone]). 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 CM discussed the availability of HH, Rehab, SNF, OP Therapy, DME services. Patient request [facility] for therapy and feels safe returning to previous environment. Patient denies hospitalization within the past 30 days. Patient denies the use of community resources ASSEMBLY MECHANIC. Transportation at time of discharge: Isak (spouse). CM will follow and assist PRN with DC plans. Coverage Notice Reviewer: [id number] Stephenie Garsia Notice Issued Date-Time: 10/28/2019 16:37 Notice Type: Patient Choice Letter Notice Delivered To: Patient Relationship to Patient: Self Mining Teacher Name: Radha cash Delivery Method: HAND - Hand Delivered Magdalena Days: Prior Verbal Notification: Recipient Understood Notice: Yes Recipient Signature: Med Rec Note Co-signed by Attending: Coverage Notice Comment: [facility] Reviewer: [id number] Stephenie Garsia Notice Issued Date-Time: 10/29/2019 17:08 Notice Type: Patient Choice Letter Notice Delivered To: Patient Relationship to Patient: Self Mining Teacher Name: Radha Cash Delivery Method: HAND - Hand Delivered Magdalena Days: Prior Verbal Notification: Recipient Understood Notice: Yes Recipient Signature: Yes Med Rec Note Co-signed by Attending: Coverage Notice Comment: [facility] Last DP export: 10/31/19 12:49 p Patient Name: RADHA CASH Page [phone] at 0848 All edits/amendments must be made on the electronic document DICTATION DATE: 11/03/19846 ADDRESSING MACHINE OPERATOR: MAJO 11/03/19846 RPT#: [id number] DC DATE:10/31/19 STATUS: DIS IN [facility] [id number] [place] [address] END OF REPORT
== END 2019-10-31 18:35 | disposition home health service (06) | DRG 462 ==
LOC: D.SDCHOLD 10-22 10:00 → D.M3 10-28 05:25 → D.SDCHOLD 10-28 07:00 → D.M3 10-28 11:57
PROVIDERS: Family Medicine; ADMIT Orthopaedic Surgery; ATTEND Orthopaedic Surgery
PROC: 0SRC0J9 Replacement of Right Knee Joint with Synthetic Substitute, Cemented, Open Approach (ICD-10-PCS; 2019-10-28)
PROC: 0SRD0J9 Replacement of Left Knee Joint with Synthetic Substitute, Cemented, Open Approach (ICD-10-PCS; principal; 2019-10-28 07:30)
DX: M17.0 Bilateral primary osteoarthritis of knee (principal); I10 Essential (primary) hypertension; F32.9 Major depressive disorder, single episode, unspecified; E03.9 Hypothyroidism, unspecified; R00.0 Tachycardia, unspecified

== ENCOUNTER → 2019-10-09 18:56 | Outpatient (CLI) | payer BC ==
[2014-04-24 16:55] VITALS: BMI 53.2
== END | disposition home or self-care (01) ==
LOC: D.LABREF 18:56
PROVIDERS: ATTEND Orthopaedic Surgery
DX: M17.0 Bilateral primary osteoarthritis of knee (principal)

== ENCOUNTER 2019-10-31 14:39 | Inpatient (IN) | payer BC, MEDICARE ==
[~2019-10-31] VITALS: Ht 157.5 cm; Wt 112.5 kg
[~2019-10-31 14:39] MED LIST changes: +ELIQUIS2.5 MG PO; +KEFLEX500 MG PO; +VISTARIL50 MG PO; +oxyCODONE IR PO
[2019-10-31 18:21] VITALS: BP 123/60; BMI 45.5
[2019-10-31 19:47] VITALS: BP 132/70
--- NOTE | 2019-10-31 20:00 | NUR ---
PATIENT RECEIVED LAYING IN BED. ASSESSMENT & VITAL SIGNS DONE. ADMISSION PAPERS SIGNED. NO C/O PAIN OR DISTRESS. BED LOW. CALL LIGHT WITHIN REACH. WILL CONTINUE TO MONITOR.
--- NOTE | 2019-11-01 02:32 | NUR ---
I have reviewed this patient and I concur with the Shift Assessment completed by the Licensed Practical Nurse today this shift.
--- NOTE | 2019-11-01 04:20 | NUR ---
PATIENT EYES CLOSED. RESPIRATIONS 18 & EVEN. SCD'S CONTINUES. BED LOW. CALL LIGHT WITHIN REACH. WILL CONTINUE TO MONITOR.
[2019-11-01 07:00] LABS: BASOPHILS 0.2 % (0-2); EOSINOPHILS 2.4 % (0-7); HEMATOCRIT 33.3 % (36.0-48.0); HEMOGLOBIN 10.6 g/dL (12-16); LYMPHOCYTES 16.9 % (15-50); MCH 30.7 pg (26.0-34.0); MCHC 31.8 g/dL (31.0-37.0); MCV 96.5 fL (80.0-100.0); MEAN PLATELET VOLUME 10.1 fL (7.4-10.4); MONOCYTES 7.6 % (2-11); NEUTROPHILS 72.9 % (40-80); PLATELET COUNT 225 10x3/uL (130-400); RBC 3.45 10x6/uL (4.00-5.40); RDW 13.3 % (11.5-14.5); WBC 6.6 10x3/uL (4.8-10.8)
[2019-11-01 07:16] LABS: CALC OSMOLALITY 274 mosm/kg (275-300); CALCIUM 9.7 mg/dL (8.5-10.1); CARBON DIOXIDE 26.1 mmol/L (21.0-32.0); CHLORIDE - SERUM 104 mmol/L (98-107); CREATININE - SERUM 0.7 mg/dL (0.6-1.3); GLUCOSE 94 mg/dL (74-106); POTASSIUM - SERUM 3.3 mmol/L (3.5-5.1); SODIUM 138 mmol/L (136-145); UREA NITROGEN 9 mg/dL (7-18); eGFR NON AFRICAN AMERICAN 90 mL/min (90-120)
--- NOTE | 2019-11-01 08:00 | NUR ---
PT RESTING IN BED WITH EYES OPEN CALL LIGHT IN REACH WILL MONITER
[2019-11-01 09:42] VITALS: Ht 157.5 cm; Wt 112.5 kg
[2019-11-01 11:01] VITALS: BP 116/56
--- NOTE | 2019-11-01 18:33 | NUR ---
PT UP WITH PHYSICAL THERAPY IN ROOM PT TOLERATING WELL WILL MONITER
--- NOTE | 2019-11-01 19:53 | NUR ---
PATIENT RECEIVED LAYING DOWN WITH CPM MACHINE ON RIGHT LEG. SWITCHED CPM TO LEFT LEG WITH 3 PEOPLE ASSIST. ASSESMENT & VITAL SIGNS DONE. NO C/O PAIN OR DISTRESS. BED LOW. CALL LIGHT & BEDSIDE TABLE WITHIN REACH. WILL CONTINUE TO MONITOR.
[2019-11-01 20:00] VITALS: BP 154/76
--- NOTE | 2019-11-02 00:51 | NUR ---
I have reviewed this patient and I concur with the Shift Assessment completed by the Licensed Practical Nurse today this shift.
--- NOTE | 2019-11-02 02:09 | NUR ---
PATIENT EYES CLOSED. RESPIRATIONS 18 & EVEN.BED LOW. SCD'S CONTINUES. TABLE & CALL LIGHT WITHIN REACH. WILL CONTINUE TO MONITOR.
[2019-11-02 08:00] VITALS: BP 130/60
--- NOTE | 2019-11-02 10:04 | NUR ---
PATIENT IS ALERT/ORIENT. CALL LIGHT WITHIN REACH. CPM ON, LEFT KNEE. VOICES NO NEEDS AT THIS TIME.
--- NOTE | 2019-11-02 13:46 | NUR ---
PATIENT IS A TOTAL ASST FOR TRANSFERS DUE TO BILATERAL KNEE REPLACEMENT. CONT OF B/B. USING BED SOLO.
--- NOTE | 2019-11-02 19:17 | NUR ---
PT LYING IN BED WATCHING TV. CL IN REACH. DENIES NEEDS AT THIS TIME. BED IN LOW SIDE RAILS X2. BED ALARM ON. RESP EVEN AND UNLABORED. INTRODUCED SELF TO PATIENT. SCDS IN PLACE. WILL CONTINUE TO MONITOR.
[2019-11-02 19:49] VITALS: BP 141/66
--- NOTE | 2019-11-03 01:13 | NUR ---
I have reviewed this patient and I concur with the Shift Assessment completed by the Licensed Practical Nurse today this shift.
[2019-11-03 07:14] LABS: BASOPHILS 0.1 % (0-2); EOSINOPHILS 4.1 % (0-7); HEMATOCRIT 32.1 % (36.0-48.0); HEMOGLOBIN 10.1 g/dL (12-16); IMMATURE GRANULOCYTES 0.3 % (0-5); LYMPHOCYTES 21.9 % (15-50); MCH 30.6 pg (26.0-34.0); MCHC 31.5 g/dL (31.0-37.0); MCV 97.3 fL (80.0-100.0); MEAN PLATELET VOLUME 9.8 fL (7.4-10.4); MONOCYTES 7.1 % (2-11); NEUTROPHILS 66.5 % (40-80); RDW 13.5 % (11.5-14.5)
[2019-11-03 07:15] LABS: PLATELET COUNT 311 10x3/uL (130-400)
[2019-11-03 07:26] VITALS: BP 120/68
[2019-11-03 07:27] LABS: CALC OSMOLALITY 276 mosm/kg (275-300); CALCIUM 9.9 mg/dL (8.5-10.1); CARBON DIOXIDE 25.5 mmol/L (21.0-32.0); CHLORIDE - SERUM 106 mmol/L (98-107); CREATININE - SERUM 0.6 mg/dL (0.6-1.3); GLUCOSE 88 mg/dL (74-106); POTASSIUM - SERUM 3.5 mmol/L (3.5-5.1); SODIUM 140 mmol/L (136-145); UREA NITROGEN 10 mg/dL (7-18); eGFR NON AFRICAN AMERICAN > 90 mL/min (90-120)
--- NOTE | 2019-11-03 10:09 | NUR ---
PATIENT ADMITTED TO REHAB FROM ACUTE FLOOR. HER PCP IS DR. ABDUL. DISCHARGE PALSWN ARE FOR PATIENT TO RETURN TO HER HOME.WILL CONTINUE TO FOLLOW WITH PATIENT.
--- NOTE | 2019-11-03 10:19 | NUR ---
SHE IS SETTING UP IN THE WHEELCHAIR, WORKING WITH THERAPY. PRN GIVEN FOR PAIN. THE CALL LIGHT IS WITHIN REACH.
--- NOTE | 2019-11-03 14:52 | NUR ---
CPM PLACED TO THE RIGHT LEG, WAS ON THE LEFT LEG.
--- NOTE | 2019-11-03 16:25 | NUR ---
TOOK THE CMP OFF THE RIGHT LEG. DENIES ANY NEEDS. THE CALL LIGHT IS WITHIN REACH.
[2019-11-03 19:26] VITALS: BP 157/67
--- NOTE | 2019-11-03 19:48 | NUR ---
PT IN BED WATCHING TV, NO NEEDS NOTED AT THIS TIME, RESPIRATIONS EVEN/UNLABORED, FALL PRECAUTIONS IN PLACE, FLUIDS/CALL LIGHT WITHIN REACH
--- NOTE | 2019-11-03 19:56 | NUR ---
PT IN BED WATCHING TV, NO NEEDS NOTED AT THIS TIME, RESPIRATIONS EVEN/UNLABORED, FALL PRECAUTIONS IN PLACE, FLUIDS/CALL LIGHT WITHIN REACH
--- NOTE | 2019-11-04 02:03 | NUR ---
PT IN BED ASLEEP, AROUSES EASILY TO VOICE NO NEEDS NOTED AT THIS TIME, RESPIRATIONS EVEN/UNLABORED, FALL PRECAUTIONS IN PLACE, FLUIDS/CALL LIGHT WITHIN REACH
--- NOTE | 2019-11-04 05:05 | NUR ---
PT IN BED ASLEEP,AROUSES EASILY TO VOICE NO NEEDS NOTED AT THIS TIME, RESPIRATIONS EVEN/UNLABORED, FALL PRECAUTIONS IN PLACE, FLUIDS/CALL LIGHT WITHIN REACH
--- NOTE | 2019-11-04 07:56 | NUR ---
SHE IS ALERT, TOOK HER MEDICATIONS WITHOUT ANY PROBLEMS. PRN FOR PAIN GIVEN. THE BILATERAL DRESSINGS ARE INTACT AND CLEAN TO HER KNEES. THE CALL LIGHT IS WITHIN REACH.
[2019-11-04 08:00] VITALS: BP 130/67
--- NOTE | 2019-11-04 09:59 | NUR ---
Nutrition Note: Chart reviewed. Pt is eating 75-100% of all meals. Pt does not appear to be at nutrition risk at this time. RD will continue to monitor for nutrition risk factors [facility].
--- NOTE | 2019-11-04 15:05 | NUR ---
BILATERAL DRESSINGS CHANGED TO KNEES, NO REDNESS OR DRAINAGE. PLACED ON THE CPM TO LEFT LEG. THE CALL LIGHT IS WIHIN REACH.
[2019-11-04 18:47] VITALS: BP 141/65
--- NOTE | 2019-11-04 19:32 | NUR ---
PT IN BED WATCHING TV, RESPIRATIONS EVEN/UNLABORED, NO IMMEDIATE NEEDS NOTED, FALL PRECAUTIONS IN PLACE, FLUIDS/CALL LIGHT WITHIN REACH
--- NOTE | 2019-11-05 02:43 | NUR ---
PT ASLEEP, AROUSES EASILY TO VOICE RESPIRATIONS EVEN/UNLABORED, NO IMMEDIATE NEEDS NOTED, FALL PRECAUTIONS IN PLACE, FLUIDS/CALL LIGHT WITHIN REACH
[2019-11-05 07:10] LABS: BASOPHILS 0.3 % (0-2); EOSINOPHILS 5.8 % (0-7); HEMATOCRIT 32.4 % (36.0-48.0); HEMOGLOBIN 10.1 g/dL (12-16); IMMATURE GRANULOCYTES 0.7 % (0-5); MCH 30.2 pg (26.0-34.0); MCHC 31.2 g/dL (31.0-37.0); MEAN PLATELET VOLUME 9.5 fL (7.4-10.4); MONOCYTES 6.7 % (2-11); NEUTROPHILS 63.5 % (40-80); PLATELET COUNT 324 10x3/uL (130-400); RBC 3.34 10x6/uL (4.00-5.40); RDW 13.3 % (11.5-14.5); WBC 7.1 10x3/uL (4.8-10.8)
[2019-11-05 07:23] VITALS: BP 135/56
[2019-11-05 07:27] LABS: CALC OSMOLALITY 272 mosm/kg (275-300); CALCIUM 9.9 mg/dL (8.5-10.1); CHLORIDE - SERUM 104 mmol/L (98-107); CREATININE - SERUM 0.5 mg/dL (0.6-1.3); GLUCOSE 87 mg/dL (74-106); POTASSIUM - SERUM 3.8 mmol/L (3.5-5.1); SODIUM 138 mmol/L (136-145); UREA NITROGEN 8 mg/dL (7-18); eGFR NON AFRICAN AMERICAN > 90 mL/min (90-120)
--- NOTE | 2019-11-05 08:02 | NUR ---
PT UP IN BED EATING BREAKFAST TOLERATING WELL WILL MONITER
--- NOTE | 2019-11-05 11:14 | NUR ---
I have reviewed this patient and I concur with the Shift Assessment completed by the Licensed Practical Nurse today this shift.
--- NOTE | 2019-11-05 14:03 | NUR ---
CARE TEAM MEETING: PATIENT IS DOING WELL IN THERAPY. HER TENATIVE DC DATE IS 11/13/19. WILL CONTINUE TO FOLLOW WITH PATIENT.
--- NOTE | 2019-11-05 15:51 | NUR ---
CLINICAL UPDATES FAXED TO AT , AUTH. # [id number] WITH A TENATIVE DC DATE BEING 11/13/19. WILL CONTINUE TO FOLLOW WITH PATIENT.
--- NOTE | 2019-11-05 17:58 | NUR ---
PT IN ROOM WITH CPM ON RIGHT LEG IN ROOM AT BEDSIDE CALL LIGHT IN REACH WILL MONITER
--- NOTE | 2019-11-05 19:07 | NUR ---
PT IN BED WATCHING TV RESPIRATIONS EVEN/UNLABORED, NO IMMEDIATE NEEDS NOTED, FALL PRECAUTIONS IN PLACE, FLUIDS/CALL LIGHT WITHIN REACH
[2019-11-05 19:56] VITALS: BP 136/57
--- NOTE | 2019-11-05 23:07 | NUR ---
PT ASLEEP, AROUSES EASILY TO VOICE, RESPIRATIONS EVEN/UNLABORED, NO IMMEDIATE NEEDS NOTED, FALL PRECAUTIONS IN PLACE, FLUIDS/CALL LIGHT WITHIN REACH
--- NOTE | 2019-11-06 07:20 | NUR ---
PT RESTING IN BED WITH EYES OPEN CALL LIGHT IN REACH WILL MONITER
[2019-11-06 07:45] VITALS: BP 138/45
--- NOTE | 2019-11-06 18:22 | NUR ---
PT RESTING IN BED WITH CPM ON RIGHT LEG CALL LIGHT IN REACH WILL MONITER
--- NOTE | 2019-11-06 19:13 | NUR ---
PT SITTING UP IN BED. REMOVED CPM FROM RIGHT KNEE. PT DENIES FURTHER NEEDS AT THIS TIME. BED IN LOW SIDE RAILS X2. RESP EVEN AND UNLABORED. CL IN REACH. A/O X4. WILL CONTINUE TO MONITOR.
[2019-11-06 20:31] VITALS: BP 146/70
--- NOTE | 2019-11-07 01:20 | NUR ---
PT RESTING QUIETLY. CL IN REACH. NO DISTRESS NOTED. WCTM
--- NOTE | 2019-11-07 03:37 | NUR ---
I have reviewed this patient and I concur with the Shift Assessment completed by the Licensed Practical Nurse today this shift.
--- NOTE | 2019-11-07 07:26 | NUR ---
PT RESTING IN BED WITH EYES OPEN CALL LIGHT IN REACH WILL MONITER
[2019-11-07 07:56] VITALS: BP 144/74
[2019-11-07 08:47] LABS: CALC OSMOLALITY 275 mosm/kg (275-300); CALCIUM 9.9 mg/dL (8.5-10.1); CARBON DIOXIDE 28.8 mmol/L (21.0-32.0); CHLORIDE - SERUM 105 mmol/L (98-107); CREATININE - SERUM 0.7 mg/dL (0.6-1.3); GLUCOSE 84 mg/dL (74-106); POTASSIUM - SERUM 3.9 mmol/L (3.5-5.1); SODIUM 140 mmol/L (136-145); UREA NITROGEN 6 mg/dL (7-18); eGFR NON AFRICAN AMERICAN 90 mL/min (90-120)
[2019-11-07 08:52] LABS: BASOPHILS 0.1 % (0-2); EOSINOPHILS 4.4 % (0-7); HEMATOCRIT 33.8 % (36.0-48.0); HEMOGLOBIN 10.6 g/dL (12-16); IMMATURE GRANULOCYTES 0.7 % (0-5); LYMPHOCYTES 25.3 % (15-50); MCH 30.7 pg (26.0-34.0); MCHC 31.4 g/dL (31.0-37.0); MEAN PLATELET VOLUME 9.7 fL (7.4-10.4); MONOCYTES 5.2 % (2-11); NEUTROPHILS 64.3 % (40-80); RBC 3.45 10x6/uL (4.00-5.40); RDW 13.6 % (11.5-14.5); WBC 7.3 10x3/uL (4.8-10.8)
[2019-11-07 08:53] LABS: PLATELET COUNT 394 10x3/uL (130-400)
--- NOTE | 2019-11-07 18:32 | NUR ---
PT RESTING IN BED WITH CPM SCHOOL TEACHER LIGHT IN REACH WILL MONITER
--- NOTE | 2019-11-07 20:20 | NUR ---
PATIENT RECEIVED LAYING IN BED. ASSESSMENT & VITAL SIGNS DONE. CPM IN USE. BED LOW. CALL LIGHT WITHIN REACH. WILL CONTINUE TO MONITOR.
[2019-11-07 20:22] VITALS: BP 142/55
--- NOTE | 2019-11-08 01:32 | NUR ---
I have reviewed this patient and I concur with the Shift Assessment completed by the Licensed Practical Nurse today this shift.
--- NOTE | 2019-11-08 01:56 | NUR ---
PATIENT EYES CLOSED. RESPIRATIONS 18 & EVEN. BED LOW. CALL LIGHT WITHIN REACH. WILL CONTINUE TO MONITOR.
--- NOTE | 2019-11-08 05:13 | NUR ---
PATIENT REFUSED SHOWER. WANTS SHOWER IN AFTERNOON. BED LOW. CALL LIGHT WITHIN REACH. WILL CONTINUE TO MONITOR.
--- NOTE | 2019-11-08 08:30 | NUR ---
SHE IS ALERT, TOOK HER MEDICATIONS WITHOUT ANY PROBLEMS. BILATERAL KNEE DRESSING CLEAN, DRY, AND INTACT. THE CALL LIGHT IS WITHIN REACH.
[2019-11-08 09:38] VITALS: BP 137/68
--- NOTE | 2019-11-08 16:29 | NUR ---
SWITCHED CPM TO THE RIGHT LEG AROUND 3:30. SHE IS TOLERATING IS WELL, DOES NOT WANT ANY PAIN MED AT THIS TIME. THE CALL LIGHT IS WITHIN REACH.
[2019-11-08 20:00] VITALS: BP 131/54
--- NOTE | 2019-11-08 20:20 | NUR ---
PATIENT RECEIVED SITTING UP IN BED WATCHING TV. ASSESSMENT & VITAL SIGNS DONE. NO C/O PAIN OR DISTRESS AT THIS TIME. ICE PACKS REMOVED FROM BILATERAL KNEES. BED LOW. ALARM ON. CALL LIGHT WITHIN REACH. WILL CONTINUE TO MONITOR.
--- NOTE | 2019-11-09 00:57 | NUR ---
DRESSING CHANGED TO BILATERAL KNEES PER ORDER. ZIP TIES INTACT, NO DRAINAGE NOTED TO BOTH KNEES. PATIENT TOLERATED IT WELL. BED LOW. CALL LIGHT WITHIN REACH. WILL CONTINUE TO MONITOR.
--- NOTE | 2019-11-09 04:11 | NUR ---
I have reviewed this patient and I concur with the Shift Assessment completed by the Licensed Practical Nurse today this shift.
--- NOTE | 2019-11-09 06:13 | NUR ---
PATIENT LAYING IN BED. PATIENT GIVEN AM MEDICATION. NO C/O PAIN. DID NOT NEED ASSIST TO BATHROOM. BED LOW. ALARM ON. CALL LIGHT WITHIN REACH. WILL CONTINUE TO MONITOR.
--- NOTE | 2019-11-09 08:07 | NUR ---
SHE IS GETTING TO THE BATHROOM WITH A WALKER. SHE DOES NOT WANT ANY PAIN MEDICATION AT THIS TIME. THE CALL LIGHT IS WITHIN REACH.
[2019-11-09 09:17] VITALS: BP 124/63
--- NOTE | 2019-11-09 15:46 | RHP ---
PATIENT: OSVALDO CASH MEDICAL RECORD: [id number] ACCOUNT: [id number] LOCATION:[facility] : 57 ADMISSION DATE: 10/31/19 REHABILITATION HISTORY AND PHYSICAL EXAMINATION POST ADMISSION PHYSICIAN EXAMINATION ADMITTING DIAGNOSIS: Bilateral total knee replacement. HISTORY OF PRESENT ILLNESS: The patient is a 64-year-old female patient who underwent a bilateral total knee replacement on 10/27 without complications. Her pain was controlled with [employer] after this. She got a history of hypothyroidism, obstructive sleep apnea. She does use CPAP. She got morbid obesity. The patient was followed throughout her stay. She was on DVT and PE prophylaxis throughout her stay, also GI prophylaxis and SCDs. The patient has been started on Eliquis. Barriers to discharge home safely at this time to include being monitored closely for lab values, medication adjustment, monitor pain control. She got decreased activity tolerance, decreased strength, weakness, balance deficits, gait disturbance, impaired mobility, dyspnea on exertion, self-care deficits. Prior to this surgery, she was living independently with her , was independent with ADLs and mobility. Currently, she is max assist for ADLs. She has been able to stand recently. She will require intensive therapy to get back to her prior level of function before returning home. COMORBIDITIES: Include hypertension, hypothyroidism, morbid obesity, osteoarthritis, obstructive sleep apnea, and depression. PAST MEDICAL HISTORY: Significant for hypertension. She got a history of depression, anxiety, osteoarthritis, obesity, depression. PAST SURGICAL HISTORY: Includes gallbladder surgery, breast surgery, gastric sleeve. ALLERGIES: No known drug allergies. CURRENT MEDICATIONS: Include Effexor 150 mg daily. She is on Synthroid 25 mcg daily, Keflex 500 mg b.i.d., Eliquis 2.5 mg b.i.d., OxyIR 10 mg q.4 hours p.r.n., and Vistaril as needed. HABITS: No alcohol or tobacco use. FAMILY HISTORY: Noncontributory. SOCIAL HISTORY: The patient hopes to return back home and get back to her prior level of function after being able to get up on her legs. REVIEW OF SYSTEMS: GENERAL: Does complain of some weakness and fatigue. HEENT: Denies cold, cough, or congestion. CARDIOVASCULAR: Denies any chest pain. PHYSICAL EXAMINATION: VITAL SIGNS: Stable, afebrile. GENERAL: A well-developed elderly female in no acute distress upon exam. HEENT: Normocephalic and atraumatic. Mucosa moist. HISTORY AND PHYSICAL [id number] SHREYA,OSVALDO NECK: Supple. No lymphadenopathy. LUNGS: Clear in upper [place]. No wheezes, rhonchi, or rales. HEART: Regular rate and rhythm. No murmurs, rubs, or gallops. ABDOMEN: Soft, benign, and nondistended. Positive bowel sounds times 4. EXTREMITIES: No clubbing, cyanosis, or edema. Postop areas of both knees actually look pretty good. No signs of erythema or redness is concerning at this time. NEUROLOGIC: She does have proximal muscle weakness. LABORATORY DATA: White count 6.6, H&H 10.6 and 33.3, and platelet count was noted to be 225. Sodium 138, potassium 3.3, BUN and creatinine of 9 and 0.7, blood sugar is noted to be 94. ASSESSMENT: This 64-year-old female patient admitted to rehab with a working diagnosis of bilateral knee replacement. The patient has potential to make improvement. We instituted the following multidisciplinary therapies including, but not limited to physical, occupational, respiratory, speech, nutritional services, prosthetics, and orthotics. Given her complex medical condition and risks for more complications, rehabilitation services cannot be provided at a low level of care such as skilled nurse facility. PLAN: 1. Admit to [facility] for inpatient therapy to include the following disciplines: a. Physical therapy to improve gait, all transfer skills and bed mobility to a modified independent level. b. Occupational therapy to improve activities of daily living. c. Case management to help with discharge planning and placement options. d. Nutrition to assist with nutritional needs. e. Rehabilitation nursing to assist in monitoring the patient's underlying medical condition and assist with any type bowel or bladder management. 2. The patient's current medication and medical care will be continued. 3. Place on standard fall precautions. 4. The patient's estimated length of stay is approximately 7-10 days. 5. We will go ahead and start her back on home meds which include Lasix and also on her Celebrex. We will go ahead and replace her potassium and we will see again in the a.m. either on Sunday or Sunday. NTS:[id number] Voice Confirmation ID: [id number] DOCUMENT ID: [id number] JORGE L notes whether there has been none or any medical/functional change since admission: - No change since preadmission screen. JORGE L attests patient continues to be appropriate for IRF: - Continues to be appropriate. HISTORY AND PHYSICAL [id number] OSVALDO CASH,CODY TORRES MD at 1546 CC: [id number] DICTATION DATE: 11/01/191753 [employer]: 11/01/19 192 ADM IN [place] [id number] [place] [address]
[2019-11-09 20:05] VITALS: BP 133/72
--- NOTE | 2019-11-09 20:14 | NUR ---
PATIENT RECEIVED SITTING UP IN BED. ASSESSMENT & VITAL SIGNS DONE. PATIENT REQUEST TO LEAVE IN AM. BED LOW. ALARM ON. CALL LIGHT WITHIN REACH. WILL CONTINUE TO MONITOR.
--- NOTE | 2019-11-10 03:21 | NUR ---
I have reviewed this patient and I concur with the Shift Assessment completed by the Licensed Practical Nurse today this shift.
[2019-11-10 07:14] LABS: BASOPHILS 0.1 % (0-2); HEMATOCRIT 36.5 % (36.0-48.0); HEMOGLOBIN 11.3 g/dL (12-16); IMMATURE GRANULOCYTES 0.8 % (0-5); LYMPHOCYTES 32.7 % (15-50); MCH 30.5 pg (26.0-34.0); MCV 98.4 fL (80.0-100.0); MEAN PLATELET VOLUME 9.9 fL (7.4-10.4); NEUTROPHILS 55.4 % (40-80); PLATELET COUNT 393 10x3/uL (130-400); RBC 3.71 10x6/uL (4.00-5.40); RDW 13.9 % (11.5-14.5)
[2019-11-10 07:21] LABS: CALC OSMOLALITY 276 mosm/kg (275-300); CALCIUM 10.3 mg/dL (8.5-10.1); CHLORIDE - SERUM 106 mmol/L (98-107); CREATININE - SERUM 0.8 mg/dL (0.6-1.3); GLUCOSE 81 mg/dL (74-106); POTASSIUM - SERUM 3.7 mmol/L (3.5-5.1); SODIUM 139 mmol/L (136-145); UREA NITROGEN 12 mg/dL (7-18); eGFR NON AFRICAN AMERICAN 77 mL/min (90-120)
[2019-11-10 07:40] VITALS: BP 135/72
[2019-11-10] MEDS ORDERED: VISTARIL50 MG PO (08:35)
[2019-11-10] MEDS ORDERED: oxyCODONE IR PO (08:35)
[2019-11-10] MEDS ORDERED: CELEBREX200 MG PO (08:35)
[2019-11-10] MEDS ORDERED: K-DUR20 MEQ PO (08:36)
[2019-11-10] MEDS ORDERED: FUROSEMIDE20 MG PO (08:36)
--- NOTE | 2019-11-10 10:21 | NUR ---
PATIENT IS ALERT/ORIENT. CALL LIGHT WITHIN REACH. VOICES NO NEEDS AT THIS TIME. WILL CONTINUE WITH PLAN OF CARE
--- NOTE | 2019-11-10 10:22 | NUR ---
NEW ORDERS RECEIVED FOR DISCHARGE TO HOME TODAY.
--- NOTE | 2019-11-10 11:33 | NUR ---
PATIENT DISCHARGING HOME TODAY WITH FAMILY. [facility] WILL PROVIDE THERAPY AT HOME. [facility] WILL DELIVER A BEDSIDE COMMODE TO PATIENT. DR. BECKER 11-20-19 @ 11:45, DR. DAVILA 11/17/19 @ 3:00. JERI SIGNED, IMM SERVED AND EXPLAINED, ONE GIVEN TO PATIENT AND ONE FILED IN CHART. COMPARE DATA FOR HOME HEALTH REVIEWED PATIENT VOICED UNDERSTANDING. DC INSTRUCTIONS FAXED TO PCP, HOME HEALTH, [facility] , AUTH. # [id number] AND REVIEWED WITH PATIENT.
--- NOTE | 2019-11-10 16:26 | NUR ---
PATIENT HELPED OUT TO CAR BY STAFF
== END 2019-11-10 16:27 | disposition home health service (06) | DRG 560 ==
LOC: D.REHAB 14:39
PROVIDERS: ADMIT Emergency Medicine; ATTEND Emergency Medicine
DX: Z47.1 Aftercare following joint replacement surgery (principal); Z68.42 Body mass index [BMI] 45.0-49.9, adult; Z96.653 Presence of artificial knee joint, bilateral; E03.9 Hypothyroidism, unspecified; G47.33 Obstructive sleep apnea (adult) (pediatric); E66.01 Morbid (severe) obesity due to excess calories; F32.9 Major depressive disorder, single episode, unspecified; I10 Essential (primary) hypertension; M17.0 Bilateral primary osteoarthritis of knee